=== PATIENT | male | born 1955 | race African-American/Black ===

== ENCOUNTER 2017-07-10 14:47 | Emergency (ER) | payer SELFPAY ==
[~2017-07-10] VITALS: Ht 185.4 cm; Wt 92.0 kg
[2017-07-10] MEDS ORDERED: KETOROLAC 30MG/ML VIAL IM ONE (15:30)
[2017-07-10] MEDS ORDERED: CYCLOBENZAPRINE 10MG TABLET PO ONE (15:30)
[2017-07-10 16:35] VITALS: BP 157/87
== END 2017-07-10 16:35 | disposition home or self-care (01) ==
LOC: ER 15:10
DX: M54.5 Low back pain (principal); F17.200 Nicotine dependence, unspecified, uncomplicated
CPT/HCPCS: 96372; 99283; J1885; Z7610